=== PATIENT | male | born 1970 | race Caucasian/White ===

== ENCOUNTER → 2020-03-01 | Outpatient (CLI) | payer BC, OTHER ==
[~2020-03-01] MED LIST: AMLO1TAB25 PO; CYAN100050 PO; IRON65TA2 PO; LISI10TA4 PO; OMEP-218 PO; ROSU5TAB5 PO; TADA20TA PO
== END ==
LOC: M LABSMTC 11:46
PROVIDERS: ATTEND Anesthesiology
DX: Z01.812 Encounter for preprocedural laboratory examination (principal); Z20.828 Contact with and (suspected) exposure to other viral communicable diseases

== ENCOUNTER 2020-03-06 08:42 | Day surgery (SDC) | payer BC, OTHER ==
[~2020-03-06] VITALS: Ht 177.8 cm; Wt 102.5 kg
[~2020-03-06 08:42] MED LIST changes: +NS 1,000 ML IV ONE
[2020-03-06] MEDS ORDERED: propofoL 200 MG/20 ML VIAL As Ordered ONE (09:22)
[2020-03-06] MEDS ORDERED: LIDOCAINE 2% 100MG/5ML SDV (FOR ANES.) As Ordered ONE (09:22)
--- NOTE | 2020-03-06 10:03 | ROOR ---
Patient Name: Pancho Vyas Procedure Date: 03/06/2020 9:43 AM Date of : 1970 Age: 50 Room: [facility] Gender: Male Note Status: Finalized Procedure: Colonoscopy Indications: Colon cancer screening in patient at increased risk: Colorectal cancer in father Providers: Brian Olvera Jr, MD Referring MD: Sophie CDAE DO Requesting Provider: Medicines: Propofol per Anesthesia Complications: No immediate complications. Procedure: Pre-Anesthesia Assessment: - Prior to the procedure, a History and Physical was performed, and patient medications and allergies were reviewed. The patient is competent. The risks and benefits of the procedure and the sedation options and risks were discussed with the patient. All questions were answered and informed consent was obtained. Patient identification and proposed procedure were verified by the physician and the nurse in the pre-procedure area and in the procedure room. Mental Status Examination: alert and oriented. Airway Examination: normal oropharyngeal airway and neck mobility. Respiratory Examination: clear to auscultation. CV Examination: normal. ASA Grade Assessment: II - A patient with mild systemic disease. After reviewing the risks and benefits, the patient was deemed in satisfactory condition to undergo the procedure. The anesthesia plan was to use moderate sedation / analgesia (conscious sedation). Immediately prior to administration of medications, the patient was re-assessed for adequacy to receive sedatives. The heart rate, respiratory rate, oxygen saturations, blood pressure, adequacy of pulmonary ventilation, and response to care were monitored throughout the procedure. The physical status of the patient was re-assessed after the procedure. The Colonoscope was introduced through the anus and advanced to the cecum, identified by appendiceal orifice and ileocecal valve. The colonoscopy was performed without difficulty. The patient tolerated the procedure well. The quality of the bowel preparation was adequate. Findings: The rectum, recto-sigmoid colon, descending colon, transverse colon, cecum, appendiceal orifice and ileocecal valve appeared normal. A small polyp was found in the ascending colon. The polyp was removed with a cold snare. Resection and retrieval were complete. Multiple small and large-mouthed diverticula were found in the sigmoid colon. Non-bleeding external and internal hemorrhoids were found during retroflexion and during endoscopy. The hemorrhoids were Grade II (internal hemorrhoids that prolapse but reduce spontaneously) and Grade III (internal hemorrhoids that prolapse but require manual reduction). Impression: - The rectum, recto-sigmoid colon, descending colon, transverse colon, cecum, appendiceal orifice and ileocecal valve are normal. - One small polyp in the ascending colon, removed with a cold snare. Resected and retrieved. - Diverticulosis in the sigmoid colon. - Non-bleeding external and internal hemorrhoids. Recommendation: - Discharge patient to home (ambulatory). - Repeat colonoscopy in 5 years for surveillance. Procedure Code(s): --- Professional --- 99413, Colonoscopy, flexible; with removal of tumor(s), polyp(s), or other lesion(s) by snare technique Diagnosis Code(s): --- Professional --- Z80.0, Family history of malignant neoplasm of digestive organs K64.2, Third degree hemorrhoids K63.5, Polyp of colon K57.30, Diverticulosis of large intestine without perforation or abscess without bleeding CPT copyright 2019 [employer]. All rights reserved. The codes documented in this report are preliminary and upon clinical education specialist review may be revised to meet current compliance requirements. Brian Olvera MD Brian Olvera Jr, MD 03/06/2020 10:04:04 AM Electronically signed by Brian Olvera Jr, MD Number of Addenda: 0 Note Initiated On: 03/06/2020 9:43 AM Estimated Blood Loss: Estimated blood loss: none.
[2020-03-06 10:25] VITALS: BP 137/87
== END 2020-03-06 10:43 | disposition home or self-care (01) ==
LOC: M OPP 08:42
PROVIDERS: ATTEND Surgery
DX: Z12.11 Encounter for screening for malignant neoplasm of colon (principal); Z80.0 Family history of malignant neoplasm of digestive organs; D12.6 Benign neoplasm of colon, unspecified; K57.30 Diverticulosis of large intestine without perforation or abscess without bleeding; K64.2 Third degree hemorrhoids; I10 Essential (primary) hypertension; E78.5 Hyperlipidemia, unspecified; F17.210 Nicotine dependence, cigarettes, uncomplicated; Z88.0 Allergy status to penicillin; Z79.899 Other long term (current) drug therapy

== ENCOUNTER → 2021-01-06 | Outpatient (CLI) | payer BC, OTHER ==
[~2021-01-06] MED LIST changes: +LISI10TA22 PO; -LISI10TA4 PO; -NS 1,000 ML IV ONE
== END ==
LOC: M PLALAB 15:31
PROVIDERS: ATTEND Family Medicine
DX: R53.83 Other fatigue (principal)

== ENCOUNTER → 2021-08-27 | Outpatient (CLI) | payer BC, OTHER ==
[~2021-08-27] MED LIST changes: +OMEP-173 PO; -OMEP-218 PO
== END ==
LOC: M PLAIMG 08:30
PROVIDERS: ATTEND Family Medicine
DX: R07.81 Pleurodynia (principal)

== ENCOUNTER → 2021-09-07 | Outpatient (CLI) | payer BC, OTHER ==
[~2021-09-07] MED LIST changes: +ISOVUE-370 76% 100ML VIAL As Ordered ONE
== END ==
LOC: M RAD 17:31
PROVIDERS: ATTEND Family Medicine
DX: R91.8 Other nonspecific abnormal finding of lung field (principal)

== ENCOUNTER → 2022-11-18 | Outpatient (CLI) | payer BC, OTHER ==
[~2022-11-18] MED LIST changes: +CYAN-1 PO; -CYAN100050 PO
== END ==
LOC: M RAD 15:28
PROVIDERS: ATTEND Family Medicine
DX: I71.20 Thoracic aortic aneurysm, without rupture, unspecified (principal)

== ENCOUNTER → 2023-07-07 | Outpatient (REF) | payer BC, OTHER ==
[~2023-07-07] MED LIST changes: -ISOVUE-370 76% 100ML VIAL As Ordered ONE; +ROSU5TAB40 PO; -ROSU5TAB5 PO
== END ==
LOC: M LAB REF 16:57
PROVIDERS: ATTEND Physician Assistant
DX: L02.212 Cutaneous abscess of back [any part, except buttock and flank] (principal)

== ENCOUNTER → 2023-11-18 | Outpatient (CLI) | payer BC ==
[~2023-11-18] MED LIST changes: +ISOVUE-370 76% 100ML VIAL As Ordered ONE
== END ==
LOC: M RAD 07:54
PROVIDERS: ATTEND Family Medicine
DX: I71.20 Thoracic aortic aneurysm, without rupture, unspecified (principal)